=== PATIENT | female | born 1970 | race African-American/Black ===

== ENCOUNTER 2017-01-01 14:57 | Emergency (ER) | payer MEDICAID ==
[~2017-01-01] VITALS: Ht 170.2 cm; Wt 100.0 kg
[~2017-01-01 14:57] MED LIST: GABA-290 PO; NAPR-681 PO; OMEP20TA80 PO
[2017-01-01 15:43] VITALS: BP 131/82
== END 2017-01-01 17:54 | disposition left against medical advice (07) ==
LOC: ER 15:04
DX: Z53.21 Procedure and treatment not carried out due to patient leaving prior to being seen by health care provider (principal)